=== PATIENT | male | born 1945 | race Two or more races ===

== ENCOUNTER 2023-05-29 12:05 | Inpatient (IN) | payer OTHER ==
[~2023-05-29] VITALS: Ht 152.4 cm; Wt 79.8 kg
[2023-05-30] MEDS ORDERED: ROSUVAST PO (14:28)
[2023-06-03] MEDS ORDERED: VITAMIN D3250 MCG (08:27)
[2023-06-03] MEDS ORDERED: GABAPENTIN600 MG (08:27)
[2023-06-03] MEDS ORDERED: MECLIZINE HCL25 MG (08:27)
[2023-06-03] MEDS ORDERED: ROSUVASTATIN CA10 MG (08:27)
[2023-06-03] MEDS ORDERED: LISINOPRIL10 MG (08:27)
[2023-06-03] MEDS ORDERED: RESTORIL15 MG (08:27)
[2023-06-03] MEDS ORDERED: AMOX-CLAV 875-1 EACH PO (11:18)
[2023-06-03] MEDS ORDERED: MEDROLPACK PO (11:18)
[2023-06-03] MEDS ORDERED: PERCOCET 5-3251 EACH PO (11:18)
[2023-06-03] MEDS ORDERED: ZOFRAN8 MG PO (11:19)
[2023-06-03] MEDS ORDERED: NEURONTIN800 MG PO (11:19)
[2023-06-03] MEDS ORDERED: COLACE100 MG PO (11:19)
== END 2023-06-05 10:51 | disposition home or self-care (01) | DRG 455 ==
LOC: EDSTATUS 05-30 11:00 → ADM 05-30 11:00 → O/R 06-03 07:07 → PED 06-03 07:07 → EDBD 06-03 11:00 → EDSEX 06-03 11:00 → SURG 06-03 11:00 → PED 06-03 18:04
PROVIDERS: ADMIT Orthopaedic Surgery Orthopaedic Surgery of the Spine; ATTEND Orthopaedic Surgery Orthopaedic Surgery of the Spine
PROC: XRGB0R7 Fusion of Lumbar Vertebral Joint using Custom-Made Anatomically Designed Interbody Fusion Device, Open Approach, New Technology Group 7 (ICD-10-PCS; 2023-06-03)
PROC: 0QB30ZZ Excision of Left Pelvic Bone, Open Approach (ICD-10-PCS; 2023-06-03)
PROC: XRGD0R7 Fusion of Lumbosacral Joint using Custom-Made Anatomically Designed Interbody Fusion Device, Open Approach, New Technology Group 7 (ICD-10-PCS; 2023-06-03)
PROC: 0SG3071 Fusion of Lumbosacral Joint with Autologous Tissue Substitute, Posterior Approach, Posterior Column, Open Approach (ICD-10-PCS; 2023-06-03)
PROC: 0ST20ZZ Resection of Lumbar Vertebral Disc, Open Approach (ICD-10-PCS; 2023-06-03)
PROC: 0ST40ZZ Resection of Lumbosacral Disc, Open Approach (ICD-10-PCS; 2023-06-03)
PROC: 07DR3ZZ Extraction of Iliac Bone Marrow, Percutaneous Approach (ICD-10-PCS; 2023-06-03)
PROC: 0SG0071 Fusion of Lumbar Vertebral Joint with Autologous Tissue Substitute, Posterior Approach, Posterior Column, Open Approach (ICD-10-PCS; principal; 2023-06-03 14:30)
DX: M43.16 Spondylolisthesis, lumbar region (principal); M48.062 Spinal stenosis, lumbar region with neurogenic claudication; M48.07 Spinal stenosis, lumbosacral region; M43.17 Spondylolisthesis, lumbosacral region